=== PATIENT | male | born 1980 | race Caucasian/White ===

== ENCOUNTER 2025-08-21 11:28 | Emergency (ER) | payer BC, SELFPAY ==
[2025-08-21] VITALS (8 sets, daily range): BP systolic 82–123; BP diastolic 45–70; PULSE 84–102; RESP 16–18; TEMP 36.4–36.6; O2SAT 94–100; BMI 25.2
--- NOTE | 2025-08-21 12:03 | EDS_ITS ---
HPI History of Present Illness Chief Complaint: Nausea/Vomiting/Diarrhea Narrative Narrative: Pt is a 45-year-old male who is presenting to the ER today with chief complaint of nausea, vomiting, diarrhea has been going on for the past 4 to 5 days. is at bedside. Patient has a history of scleroderma, congestive heart failure. Patient does not have his gallbladder or appendix. Patient has multiple connective tissue diseases. Patient does have a parts analyst in the [facility]. Patient scleroderma physician is at [facility] as well. Patient is having mild to moderate weakness at home. Patient has Raynaud's disease as well. No headache. No neck pain. No chest pain or shortness of breath. Patient is having some mild abdominal cramping. Patient has not urinated today. Patient is barely holding onto liquids this week, also having loose diarrhea as well. No recent traveling. No new antibiotics. No sick contacts. Patient uses a rollator at home to help with ambulation Patient's blood pressure is With a systolic around 90-1 patient has normal 00s which is normal for him. REVIEW OF SYSTEMS: Unless otherwise stated in this report the patient's positive and negative responses for review of systems for constitutional, eyes, ENT, cardiovascular, respiratory, gastrointestinal, neurological, , musculoskeletal, and integument systems and related systems to the presenting problem are either stated in the history of present illness or were not pertinent or were negative for the symptoms and/or complaints related to the presenting medical problem. Nurse's notes and vital signs reviewed. The patient is not hypoxic. Vital signs reviewed and patient is not hypoxic. General: The patient appears well and in no apparent distress. Patient is resting comfortably on cart. Not toxic, lethargic, or listless. Skin: Warm, dry, no pallor noted. There is no rash noted. Red macular papular rash to face, neck, this is normal for his scleroderma. No new rash. Head: Normocephalic, atraumatic Eye: Normal conjunctiva, no drainage, EOMI. PERRL. Ears, Nose, Mouth, and Throat: oral mucosa is very dry. Nares patent. Mouth without vesicles. Cardiovascular: Regular Rate and Rhythm, no murmurs, gallops, or rubs Respiratory: Patient is in no distress, no accessory muscle use, lungs are clear to auscultation, no wheezing, rales or rhonchi Back: non-tender, no CVA tenderness bilaterally to percussion. NO CTLS midline or paraspinal tenderness to palpation. GI: Soft, diffuse mild tenderness to palpation, no masses appreciated. No rebound, guarding, or rigidity noted. No flank pain bilateral. Musculoskeletal: The patient has full range of motion of all extremities and joints with no difficulty. Patient has no motor, no sensory deficits. Neurological: A&O x4, normal speech, no focal neurological deficits. Psychiatric: Cooperative [facility] Medical History (Updated 08/21/25 @ 16:[address] 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 Scleroderma Seronegative arthritis MCTD (mixed connective tissue disease) GERD (gastroesophageal reflux disease) Nodule of right lung Migraine Gluten intolerance Anxiety and depression Seasonal allergies Seasonal allergic rhinitis HTN (hypertension) Raynaud disease Allergy/AdvReac Type Severity Reaction Status Date / Time No Known Allergies Allergy Verified 08/21/25 11:29 Social History Smoking Status: Never smoker EXAM Physical Exam Const Vital Signs: 08/21/25 11:30 08/21/25 12:15 08/21/25 13:00 Temperature 97.8 F 97.6 F L 97.8 F Temperature Source Oral Oral Oral Pulse Rate 90 87 85 Respiratory Rate 16 18 18 Blood Pressure 82/60 L 88/60 L 98/65 Blood Pressure Mean 67 69 76 Pulse Ox 100 98 Oxygen Delivery Method Room Air Room Air 08/21/25 14:00 08/21/25 15:00 08/21/25 16:00 Temperature 97.5 F L Temperature Source Temporal Pulse Rate 84 97 102 H Respiratory Rate 18 18 17 Blood Pressure 86/54 L 105/63 100/70 Blood Pressure Mean 64 77 80 Pulse Ox 95 96 94 Oxygen Delivery Method Room Air Room Air Room Air MDM MDM MDM Narrative Medical decision making narrative: Patient seen and examined: Patient will have IV, fluids, Zofran, Differential diagnosis includes but is not limited to: Dehydration, electrolyte abnormality, BIANCA, flulike symptoms Relevant laboratory interpretation: Patient had significant findings with his BUN and creatinine. Patient's initial BUN and creatinine were 100/5.6. This was repeated secondary to possible other lab error. Patient's initial potassium was 6.2, repeat was 6.0. Patient CO2 is 10. Anion gap 20, repeat BUN and creatinine was 96/5.25. Lactic acid negative. LFTs negative. Lipase negative. Urine shows proteinuria, Reevaluation: Patient was given 1 L of IV fluid. Patient was given 4 mg of Zofran. Patient was feeling much better. Patient is tolerating ice chips. Patient is aware of repeat testing on metabolic panel secondary to possibility of air. Second metabolic panel shows metabolic acidosis with dehydration and acute renal failure. Patient has been to [facility] and [facility] multiple times. We have discussed admitting patient at [facility] versus transferring to [facility], patient is requesting [facility] transfer since he has been there so many times and that is where his parts analyst and scleroderma doctors are. Patient's parts analyst is Dr. Cole Lazaro. He is out of [place]. 1500 patient has been to [place] previously. Patient is accepted by Dr. Rodriguez. They most likely not have any beds until tomorrow. 1510 I have spoken to our hospitalist, Dr. Doll. If patient is still in the ER after 6 hours, patient may be admitted to the inpatient floor. He was very helpful in wound care, he had suggested running a VBG and starting a bicarb drip on this patient as well to help with acidosis. Patient has received 2 L of IV fluid. Patient is drinking fluids. Patient wants to eat. Patient was told he needs to maintain IV fluids and clear liquids. VBG shows a pH of 7.12, patient has been started on a sodium bicarb drip at 150/h for 5 hours to see if acidity would normalize with dehydration and kidney function. Sodium bicarb drip was recommended by Dr. Doll, hospitalist who has been very helpful in patient's care. Social barriers to healthcare: There are no food insecurities, there is no issue with transportation, there are no insurance barriers Disposition: Patient has been accepted to [facility]. Dr. Rodriguez is accepting physician. They most likely will not have a bed available until tomorrow. Patient is transitioned to Dr. Cohen ER physician to continue to watch patient at 1640. Patient will most likely be admitted to [facility] inpatient floor while waiting to be transferred to [place]. Aggressive IV fluid treatment, multiple phone calls to [facility], Dr. Doll, and multiple bedside visits. Critical care time 37 minutes exclusive from separate billable procedures that were performed. The following was considered in the determination of critical care but not limited to the level of medical decision making, intensive cardiac and/or respiratory monitoring, frequent vital sign monitoring, evaluation of laboratory studies, evaluation of radiographic studies, oxygen monitoring, and constant monitoring and speaking to family at bedside Lab Data Labs: Laboratory Results - last 24 hr 08/21/25 08/21/25 12:15 13:21 WBC 14.9 H RBC 3.81 L Hgb 11.0 L Hct 34.6 L MCV 90.8 MCH 28.9 MCHC 31.8 L RDW Std Deviation 46.8 H RDW Coeff of Cass 14.1 Plt Count 343 MPV 9.8 Immature Gran % (Auto) 0.500 Neut % (Auto) 89.6 H Lymph % (Auto) 3.9 L [place] % (Auto) 5.8 Eos % (Auto) 0.1 Baso % (Auto) 0.1 Absolute Neuts (auto) 13.4 H Absolute Lymphs (auto) 0.58 L Nucleated RBC % 0 Sodium 131 L 133 Potassium 6.2 H* 6.0 H* Chloride 98 103 Carbon Dioxide 10.0 L 10.1 L Anion Gap 23 H 20 H BUN 100 H 96 H Creatinine 5.87 H 5.25 H Estim Creat Clear Calc 14.04 L 15.70 L Est GFR (MDRD) Non-Af 11 L 13 L BUN/Creatinine Ratio 17.0 18.3 Glucose 87 84 Lactic Acid < 1.0 Calcium 9.6 8.8 Total Bilirubin 0.26 AST 24 ALT 17 Alkaline Phosphatase 79 Total Protein 8.3 Albumin 4.6 Globulin 3.7 Albumin/Globulin Ratio 1.2 Lipase 37 Urine Color Yellow Urine Clarity Clear Urine pH 5.0 Ur Specific [place] 1.025 Urine Protein 30 H Urine Glucose (UA) Normal Urine Ketones 5 H Urine Occult Blood 10 H Urine Nitrite Negative Urine Bilirubin 3 H Urine Urobilinogen Normal Ur Leukocyte Esterase 25 H Urine RBC 0 SEEN Urine WBC 0 SEEN Ur Squamous Epith Cells 0 SEEN Calcium Oxalate Crystal 2+ Urine Bacteria 0 SEEN Hyaline Casts 0-5 SEEN Urine Mucus 0 SEEN ABG Data ABG results: ABG 08/21/25 16:34 Specimen Type JYOTI Sample Site Not entered VBG pH 7.12 L* VBG pO2 43 H VBG HCO3 7 L VBG Total CO2 8 L VBG O2 Sat (Calc) 64 VBG Base Excess -22 L POC Mix VBG pCO2 Pt Tmp 22.3 L O2 Delivery Device Not entered Crit Call To/Read Back Yes Discharge Plan Triage Chief Complaint: Nausea/Vomiting/Diarrhea ED Provider: Roel Khan Dx/Rx/DC Orders Clinical Impression: Nausea & vomiting, Acute renal failure, Proteinuria, Dehydration, Diarrhea Primary Care Provider: Óscar Stern Referrals: Óscar Stern MD [Primary Care Provider, Internal Medicine] Activity Restrictions/Additional Instructions: Dr Rodriguez accepting, [facility]. 1500 Print Language: Chinese Disposition Disposition: Occupational Psychologist Acute Care Discharge Location: [facility] [employer]
[2025-08-21] MEDS: 0.9% Normal Saline (1000mL) 1,000 ML 999 ML IV ×2 (12:24→13:42)
[2025-08-21 12:31] LABS: Hematocrit 34.6 % (40-54); Hemoglobin 11.0 g/dL (13.0-16.5); Immature Granulocytes Count 0.080 X10^3/uL (0.0-0.0); Mean Corp Hgb Conc 31.8 g/dL (32-36); Mean Corpuscular Volume 90.8 fL (80-94); Mean Platelet Vol. 9.8 fl (6.2-12.0); NRBC Flagged by Analyzer 0 % (0-5); POSITIVE DIFFERENTIAL YES; Platelet Count 343 K/mm3 (150-450); RBC Distribution Width CV 14.1 % (11.6-14.6); RBC Distribution Width SD 46.8 fl (35.1-43.9); Red Blood Count 3.81 M/mm3 (4.6-6.2); White Blood Count 14.9 K/mm3 (4.4-11.0)
[2025-08-21 12:34] LABS: Differential Indicated SCAN CRITERIA MET
[2025-08-21 12:47] LABS: Lipase 37 U/L (13-75)
[2025-08-21 12:53] LABS: AST(SGOT) 24 U/L (<=37); Alanine Aminotransfer ALT/SGPT 17 U/L (<=46); Albumin, Serum 4.6 g/dL (3.5-5.0); Alkaline Phosphatase 79 U/L (40-129); Anion Gap 23 (5-15); BUN 100 mg/dL (4-19); BUN/Creat Ratio 17.0 RATIO (10-20); Calcium,Total 9.6 mg/dL (7.6-11.0); Carbon Dioxide 10.0 mmol/L (21.0-32.0); Chloride 98 mmol/L (98-108); Estimated Creatinine Clearance 14.04 ml/min (50-250); Globulin 3.7 g/dL (2.2-4.2); Glucose 87 mg/dL (70-99); Potassium 6.2 mmol/L (3.3-5.1)
--- NOTE | 2025-08-21 12:54 | ED.RN ---
Critical K+ received from lab of 6.2. Dr. Khan notified.
[2025-08-21 13:26] LABS: Mucous, Urine 0 SEEN /hpf (<or=2+); Red Blood Cells-Urine 0 SEEN /hpf (0-5); Squamous Epithelial Cells - UA 0 SEEN /hpf (0-5)
[2025-08-21 13:27] LABS: Color, Urine Yellow (Yellow); Glucose, Dipstick Normal (Normal); Ketone-Dipstick 5 mg/dl (Negative); Leukocyte Esterase-Dipstick 25 /ul (Negative); Nitrite-Dipstick Negative (Negative); Occult Blood-Urine 10 /ul (Negative); Protein-Dipstick 30 mg/dl (Negative); Specific Gravity, Urine 1.025 (1.002-1.030); Urine Bilirubin Dipstick 3 mg/dL (Negative)
[2025-08-21 13:38] LABS: Calcium Oxalate Crystals Ur 2+ /hpf (<or=2+)
[2025-08-21 14:03] LABS: Anion Gap 20 (5-15); BUN 96 mg/dL (4-19); BUN/Creat Ratio 18.3 RATIO (10-20); Calcium,Total 8.8 mg/dL (7.6-11.0); Carbon Dioxide 10.1 mmol/L (21.0-32.0); Chloride 103 mmol/L (98-108); Estimated Creatinine Clearance 15.70 ml/min (50-250); Glucose 84 mg/dL (70-99); Potassium 6.0 mmol/L (3.3-5.1)
--- NOTE | 2025-08-21 14:04 | ED.RN ---
POTASSIUM 6.0. DR MUKHERJEE
[2025-08-21 16:39] LABS: SITE Not entered; VBG BASE EXCESS -22 mmol/L (-1.0-3.5); VBG PO2 43 mmHg (25-40); VBG SO2 64 % (50-70); VBG TCO2 8 mmol/L (23-33)
[2025-08-21 16:52] LABS: Time Given 1646
[2025-08-21] MEDS: Sodium Bicarbonate 50 MEQ in Dextrose 5%-Water (1000mL Bag) 1,000 ML 150 MEQ IV (17:03)
--- NOTE | 2025-08-21 19:25 | EKG12_ITS ---
Test Reason : DYSRHYTHMIA Blood Pressure : */* mmHG Vent. Rate : 101 BPM Atrial Rate : 101 BPM P-R Int : 172 ms QRS Dur : 134 ms QT Int : 360 ms P-R-T Axes : 55 -62 84 degrees QTcB Int : 466 ms Sinus tachycardia Left axis deviation Non-specific intra-ventricular conduction block Cannot rule out Septal infarct , age undetermined Abnormal ECG Confirmed by SAM CHINCHILLA, ANSHU ([id number]), international editorial producer CAROL NEVILLE ([id number]) on 08/24/2025 6:45:26 AM Referred By: Confirmed By: ANSHU VARGAS MD
[2025-08-21] MEDS: Albuterol *CONC* 2.5mg/0.5mL VIAL.NEB. 10 MG INHALATION (19:55)
--- NOTE | 2025-08-21 20:16 | ED.RN ---
pt and express concerns over care given today. they feel uninformed. they feel they have received conflicting information on the admission/transfer process. they feel they have not had the opportunity to discuss pt's medical history and care with a physician. they are requesting dc at this time. offered pt as much information as I had available t the time re:their admission process (waiting 6h after acceptance at [facility] before being evaluated by hospitalist for admission as inpatient. states i was told you don't have beds and he'll have to sleep here in the ed. advised pt & that the info was inaccurate at this time. stated that i don't know what the circumstances were when that information was provided, but at this time we have bed availability. states we don't feel his primary issue of nausea vomiting and diarrhea and dehydration have been addressed. reviewed treatments that had been done for pt since arrival with them. advised them i will have dr mckenzie come in and speak to them re: poc. pt and agreeable to wait for his availability. dr mckenzie informed of conversation and willing to speak with pt and .
[2025-08-21 21:18] LABS: Anion Gap 20 (5-15); BUN 90 mg/dL (4-19); BUN/Creat Ratio 23.3 RATIO (10-20); Calcium,Total 9.2 mg/dL (7.6-11.0); Carbon Dioxide 11.9 mmol/L (21.0-32.0); Chloride 103 mmol/L (98-108); Estimated Creatinine Clearance 21.29 ml/min (50-250); Glucose 107 mg/dL (70-99); Potassium 5.2 mmol/L (3.3-5.1)
--- NOTE | 2025-08-21 21:44 | ED.RN ---
dr mckenzie in w/pt multiple times to discuss risks of leaving [facility]. pt and persistent in their request to leave [facility]. labs printed and pt and enc to go to [facility] or [facility] ed immediately for admission. [facility] papers signed. pt assisted to dilip to wait for to bring car to the door.
== END 2025-08-21 21:49 | disposition left against medical advice (07) ==
PROVIDERS: Emergency Medicine; Emergency Provider Emergency Medicine; PCP Internal Medicine; Visit Provider Emergency Medicine
DX: N17.9 Acute kidney failure, unspecified (principal); M34.9 Systemic sclerosis, unspecified; I50.9 Heart failure, unspecified; R11.2 Nausea with vomiting, unspecified; E86.0 Dehydration; R80.9 Proteinuria, unspecified; E87.20 Acidosis, unspecified; R19.7 Diarrhea, unspecified; I73.00 Raynaud's syndrome without gangrene; I45.9 Conduction disorder, unspecified; Z53.29 Procedure and treatment not carried out because of patient's decision for other reasons
CPT/HCPCS: 80048; 80053; 81001; 82803; 83605; 83690; 85025; 87631; 93005; 94640; 96365; 96366; 96375; 99283; A4216; J2405